=== PATIENT | female | born 1985 | race Two or more races ===

== ENCOUNTER 2019-02-22 20:29 | Emergency (ER) | payer MEDICAID ==
[~2019-02-22] VITALS: Ht 170.2 cm; Wt 72.6 kg
[2019-02-22 21:12] VITALS: BP 124/71
== END 2019-02-22 21:57 | disposition home or self-care (01) ==
LOC: ER 20:39
DX: H10.13 Acute atopic conjunctivitis, bilateral (principal); Z60.2 Problems related to living alone